=== PATIENT | male | born 1960 | race Caucasian/White ===

== ENCOUNTER 2016-06-13 17:41 | Emergency (ER) | payer MEDICARE, OTHER ==
[~2016-06-13 17:41] MED LIST: ACET500CAP PO; ALEVE220 MG PO; AMIT100 PO; AMIT25 PO; AMITRIPTYLIN150 MG PO; ASAB PO; ATEN25 PO; COZ50 PO; CYMBALTA60 PO; EXCEDRINTB PO; HALF81 PO; HUMALOG SC; LANTUS SC; LEVAQUIN750 MG PO; LEVEMIR SC; LIPITOR20 PO; LIPITOR40 PO; LOPID6 PO; LOVAZA1 GM PO; MSIMMR15 PO; MUCINEX600 MG PO; NEUR600 PO; NIASPAN500 PO; NICODERM C21 MG/241 TOP; NOVOLOG SC; OPANA ER40 MG PO; OXYCON40 PO; OXYCON80 PO; PR25 PO; ROXICODONE30 MG PO; SIMCOR1 TAB PO; TEARS PLUS OPH; TESS PO; V5 PO; VALIUM10 MG PO; VASCEPA PO; VASCEPA1 GM PO
[2016-06-13] MEDS ORDERED: LOPID6 PO (18:20)
[2016-06-13] MEDS ORDERED: VASCEPA1 GM PO (18:20)
[2016-06-13] MEDS ORDERED: NIASPAN500 PO (18:20)
[2016-06-13] MEDS ORDERED: LIPITOR40 PO (18:21)
[2016-06-13] MEDS ORDERED: NEUR600 PO (18:21)
[2016-06-13] MEDS ORDERED: AMIT100 PO (18:21)
[2016-06-13] MEDS ORDERED: COZ50 PO (18:21)
[2016-06-13] MEDS ORDERED: CYMBALTA60 PO (18:21)
[2016-06-13] MEDS ORDERED: ROXICODONE30 MG PO (18:22)
[2016-06-13] MEDS ORDERED: OPANA ER30 MG PO (18:22)
[2016-06-13] MEDS ORDERED: ATEN25 PO (18:22)
[2016-06-13] MEDS ORDERED: LANTUS SC (18:23)
[2016-06-13] MEDS ORDERED: HUMALOG SC ×2 (18:23)
[2016-06-13] MEDS ORDERED: ASAB PO (18:23)
[2016-06-13 19:06] LABS: BASOPHILS 0.2 %; BASOPHILS ABSOLUTE 0.04 10/3/uL (0.0-0.16); EOSINOPHILS 1.1 %; EOSINOPHILS ABSOLUTE 0.25 10/3/uL (0.0-0.53); HEMATOCRIT 39.1 % (40.0-51.0); HEMOGLOBIN 13.6 g/dL (13.6-17.8); IMMATURE GRANULOCYTES 0.5 %; LYMPHOCYTES 12.5 %; LYMPHOCYTES ABSOLUTE 2.74 10/3/uL (0.67-4.30); MANUAL DIFF NO %; MEAN CORPUS HGB CONC 34.8 g/dL (32.0-36.0); MEAN CORPUSCULAR HEMOGLOB 33.9 pg (26.0-34.0); MEAN CORPUSCULAR VOLUME 97.5 fL (80-100); MEAN PLATELET VOLUME 10.3 fL (9.2-13.0); MONOCYTES 6.4 %; NEUTROPHILS 79.3 %; NEUTROPHILS ABSOLUTE 17.39 10/3/uL (2.02-8.40); PLATELET COUNT 240 10/3/uL (150-400); RBC DISTRIBUTION WIDTH 12.9 % (12.0-16.0); RED CELL COUNT 4.01 10/6/uL (4.7-6.1); WHITE BLOOD CELLS 21.9 10/3/uL (4.5-10.5)
[2016-06-13 19:21] LABS: ALBUMIN 4.2 G/DL (3.5-5.0); ALKALINE PHOSPHATASE 153 U/L (45-117); BUN (BLOOD UREA NITROGEN) 17 MG/DL (6-23); CALCIUM, SERUM 9.3 MG/DL (8.5-10.4); CHLORIDE, SERUM 101 MMOL/L (96-112); CO2 (CARBON DIOXIDE) 25 MMOL/L (24-34); CREATININE 2.09 MG/DL (0.70-1.30); GFR AFRICAN AMERICAN 41 ML/MIN (>=60); GFR NON AFRICAN AMERICAN 35 ML/MIN (>=60); GLOBULIN 4.1 G/DL (2.5-4.1); GLUCOSE, SERUM 155 MG/DL (60-99); POTASSIUM, SERUM 3.9 MMOL/L (3.5-5.3); SGOT(AST) 29 U/L (5-40); SGPT(ALT) 32 U/L (5-65); SODIUM, SERUM 134 MMOL/L (135-148); TOTAL BILIRUBIN 0.2 MG/DL (0-1.2); TOTAL PROTEIN 8.3 G/DL (6.0-8.5)
[2016-09-05] MEDS ORDERED: COZ50 PO (13:24)
[2016-09-05] MEDS ORDERED: ATEN25 PO (13:24)
[2016-09-05] MEDS ORDERED: OPANA ER40 MG PO (13:25)
[2016-09-05] MEDS ORDERED: Z-PAK PO (13:26)
[2016-09-05] MEDS ORDERED: ROXICODONE30 MG PO (13:27)
[2016-09-05] MEDS ORDERED: AMIT100 PO (13:29)
[2016-09-05] MEDS ORDERED: LIPITOR40 PO (13:30)
[2016-09-05] MEDS ORDERED: CYMBALTA60 PO (13:30)
[2016-09-05] MEDS ORDERED: VASCEPA1 GM PO (13:31)
[2016-09-05] MEDS ORDERED: LOPID6 PO (13:31)
[2016-09-05] MEDS ORDERED: NEUR600 PO (13:31)
[2016-09-05] MEDS ORDERED: NIASPAN500 PO (13:31)
[2016-09-05] MEDS ORDERED: HUMALOGPEN SC ×2 (13:32)
[2016-09-05] MEDS ORDERED: LANTUSCART SC (13:32)
[2016-09-05] MEDS ORDERED: ASAB PO (13:33)
[2016-09-05] MEDS ORDERED: PROAIR HFA INH (13:34)
[2016-09-05] MEDS ORDERED: ADVIL PO (13:34)
[2016-10-01] MEDS ORDERED: VASCEPA1 GM PO (16:14)
[2016-10-01] MEDS ORDERED: LIPITOR40 PO (16:15)
[2016-10-01] MEDS ORDERED: LOPID6 PO (16:15)
[2016-10-01] MEDS ORDERED: NIASPAN500 PO (16:15)
[2016-10-01] MEDS ORDERED: NEUR600 PO (16:15)
[2016-10-01] MEDS ORDERED: CYMBALTA60 PO (16:16)
[2016-10-01] MEDS ORDERED: COZ50 PO (16:17)
[2016-10-01] MEDS ORDERED: ATEN25 PO (16:17)
[2016-10-01] MEDS ORDERED: AMIT100 PO (16:17)
[2016-10-01] MEDS ORDERED: ASAB PO (16:18)
[2016-10-01] MEDS ORDERED: OPANA ER40 MG PO (16:18)
[2016-10-01] MEDS ORDERED: LANTUSCART SC (16:18)
[2016-10-01] MEDS ORDERED: ROXICODONE30 MG PO (16:18)
[2016-10-01] MEDS ORDERED: HUMALOGPEN SC ×2 (16:19)
[2016-10-04] MEDS ORDERED: DORYX100 MG PO (10:12)
[2016-10-04] MEDS ORDERED: HABIT21 TOP (10:13)
[2016-10-04] MEDS ORDERED: MEDROLPAK4 PO (10:13)
== END 2016-06-13 22:27 | disposition left against medical advice (07) ==
LOC: ER 17:41
PROVIDERS: Hospitalist
DX: T40.601A Poisoning by unspecified narcotics, accidental (unintentional), initial encounter (principal); N17.9 Acute kidney failure, unspecified; D72.829 Elevated white blood cell count, unspecified; R65.10 Systemic inflammatory response syndrome (SIRS) of non-infectious origin without acute organ dysfunction; E11.9 Type 2 diabetes mellitus without complications; F17.200 Nicotine dependence, unspecified, uncomplicated; Z79.82 Long term (current) use of aspirin; Z79.4 Long term (current) use of insulin
CPT/HCPCS: 71010; 80053; 81001; 85025; 93005; 99285